=== PATIENT | female | born 1930 | race Caucasian/White ===

== ENCOUNTER 2017-05-25 17:04 | Emergency (ER) | payer OTHER ==
[~2017-05-25] VITALS: Ht 170.2 cm; Wt 67.6 kg
[2017-05-25 17:28] VITALS: TEMP 36.8; Ht 170.2 cm; Wt 67.6 kg
--- NOTE | 2017-05-25 20:05 | EMERGENCY ROOM VISIT NOTE ---
History Report prepared by Lay: Parker Carrillo Under the Supervision of: Dr. Torsten Early M.D. First contact with patient: 19:45 Chief Complaint: HEAD INJURY (MINOR) Stated Complaint: FELL - NOSE/HEAD INJURY History of Present Illness The patient is a 87 year old white woman with a past medical history of hypertension, heart arrhythmia, and a thyroid disorder who presents to the ED with a cc of a minor fall that occurred 5 hours ago. Positive mild facial trauma and intermittent left shoulder pain. Negative loss of consciousness, headache, chest pain, neck pain, or shortness of breath, numbness, weakness, tingling, or visual trouble. At this time, she was walking on the grass and fell forward onto her face. She has no past surgeries. She takes Coumadin for her heart arrhythmia and notes her levels are good. She does not take any Aspirin or Plavix. Source of History: patient Onset: 5 hours ago Position: other (global) Symptom Intensity: mild Quality: other (Fall) Timing: resolved Associated Symptoms: No LOC, No headache, No neck pain, No chest pain, No SOB, No abdominal pain, No back pain, No weakness, No numbness Note: She has some facial trauma and some left shoulder pain that could be from her arthritis. Review of Systems See HPI for pertinent positives and negatives. A total of ten systems were reviewed and were otherwise negative. Past Medical & Surgical Medical Problems: (1) Cardiac arrhythmia (2) HTN (hypertension) (3) Thyroid disorder Family History Omitted secondary to the patient's age. Social History Smoking Status: Never Smoker Smokeless Tobacco Use: No Alcohol Use: none Drug Use: none Marital Status: Housing Status: lives alone Occupation Status: retired Current/Historical Medications Scheduled Hydrochlorothiazide (Hctz), 25 MG PO DAILY Levothyroxine Sodium (Synthroid), 88 MCG PO DAILY Metoprolol Tartrate (Lopressor) (Lopressor), 25 MG PO DAILY Potassium Chloride (Micro-K Ext Rel), 10 MEQ PO MWF Warfarin Sodium (Coumadin), 2.5 MG PO [id number] Scheduled PRN Acetaminophen (Tylenol Arthritis Ext Rel), 650 MG PO Q8H PRN for Pain Mometasone Furoate (Elocon), 1 APPLN TOP DAILY PRN for Polyethylene Glycol-Propylene (Systane), 1 DROPS OP QID PRN for DRYNESS Allergies Coded Allergies: Naproxen (Verified Allergy, Intermediate, Hivesw, 05/25/17) Physical Exam Vital Signs Date Time Temp Pulse Resp B/P (MAP) Pulse Ox O2 Delivery O2 Flow Rate FiO2 05/25/17 22:01 70 16 107/76 98 05/25/17 19:47 80 20 159/91 99 Room Air 05/25/17 17:28 36.8 64 18 147/82 98 Room Air 05/25/17 17:28 18 98 Physical Exam GENERAL: Awake, alert, well-appearing, NAD HENT: Normocephalic, atraumatic. Mild abrasions over the nasion and nose. No deviated septum, no septal hematoma. EOMI. No hyphema. EYES: Normal conjunctiva. Sclera non-icteric. NECK: Supple. No nuchal rigidity. FROM. RESPIRATORY: CTAB, no rhonchi, wheezing, crackles CARDIAC: RRR, no MRG ABDOMEN: Soft, NTND, BS+ MSK: No reproducible chest wall, abdomen, back, or LE TTP, no LE edema. Mild reproducible left shoulder pain. NV intact distally. NEURO: GCS 15, CN 2-12 intact, moves all 4s on command, 5/5 strength B/L UEs LEs , no sensory deficit. SKIN: No rash or jaundice noted. Medical Decision & Procedures ER Provider Diagnostic Interpretation: Radiology results as stated below per my review and radiologist interpretation: LEFT SHOULDER MIN 2 VIEWS ROUTINE CLINICAL HISTORY: 87 years-old Female presenting with fall, on coumadin, facial abrasions. TECHNIQUE: Internal rotation, external rotation, and Grashey views of the left shoulder were obtained. COMPARISON: None. FINDINGS: Superior subluxation of the left humeral head with complete effacement of the acromiohumeral interval likely indicating complete rotator cuff tear. Prominent inferior osteophyte at the humeral head that articulates with the glenoid fossa. The left acromioclavicular joint is intact. No acute fracture. Visualized portion of the left hemithorax demonstrates atherosclerosis of the aortic arch. IMPRESSION: 1. No acute osseous injury of the left shoulder. 2. Complete rotator cuff tear with chronic superior subluxation of the left humeral head and associated degenerative change. Electronically signed by: Jericho Hollis M.D. 05/25/2017 9:19 PM Dictated Date/Time: 05/25/2017 9:17 PM FACIAL BONES-MXILLOFAC WITHOUT CLINICAL HISTORY: 87 years-old Female presenting with fall, on coumadin, facial abrasions. TECHNIQUE: Multidetector CT of the face was performed without the use of intravenous contrast. IV contrast: None. A dose lowering technique was used consistent with the principles of ALARA (as low as reasonably achievable). COMPARISON: None. CT DOSE (mGy.cm): The estimated cumulative dose is 523.75 mGycm. FINDINGS: Switchman topogram: Unremarkable. Paranasal sinuses and mastoid air cells clear. No acute osseous injury is evident. Orbits normal. Remaining soft tissues of the face do not demonstrate soft tissue hematoma or significant contusion. Upper cervical spine with degenerative change. IMPRESSION: No acute osseous injury of the face. Electronically signed by: Jericho Hollis M.D. 05/25/2017 9:07 PM Dictated Date/Time: 05/25/2017 9:04 PM HEAD WITHOUT CONTRAST (CT) CLINICAL HISTORY: 87 years-old Female presenting with fall, on coumadin, facial abrasions. TECHNIQUE: Multidetector CT imaging of the head was performed without the use of intravenous contrast. IV contrast: None. A dose lowering technique was used consistent with the principles of ALARA (as low as reasonably achievable). COMPARISON: None. CT DOSE (mGy.cm): The estimated cumulative dose is 638.56 mGycm. FINDINGS: Switchman topogram: Unremarkable. Ventricles and sulci normal in size. Brain parenchyma normal in appearance with preserved downs-white differentiation. No mass effect or midline shift. No hemorrhage or acute territorial infarct. No extra-axial fluid collection. Paranasal sinuses and mastoid air cells clear. Calvarium intact. IMPRESSION: 1. No acute intracranial pathology. Electronically signed by: Jericho Hollis M.D. 05/25/2017 9:08 PM Dictated Date/Time: 05/25/2017 9:07 PM CERVICAL SPINE W/O CLINICAL HISTORY: 87 years-old Female presenting with fall, on coumadin, facial abrasions. TECHNIQUE: Multidetector CT of the cervical spine was performed without the use of intravenous contrast. IV contrast: None. A dose lowering technique was used consistent with the principles of ALARA (as low as reasonably achievable). COMPARISON: None. CT DOSE (mGy.cm): The estimated cumulative dose is 368.06 mGycm. FINDINGS: Switchman topogram: Unremarkable. Normal cervical lordosis. Multilevel degenerative change. Varying degrees of osseous neural foraminal narrowing noted most pronounced on the right at C2-3 and bilaterally at C5-6. No acute fracture or subluxation. Degenerative changes of the atlantoaxial joint. Skull base intact. No prevertebral soft tissue swelling. Marked apparent enlargement of the right lobe of the thyroid with leftward deviation of the airway. Lung apices clear. IMPRESSION: No acute osseous injury of the cervical spine. Multilevel degenerative changes. Electronically signed by: Jericho Hollis M.D. 05/25/2017 9:12 PM Dictated Date/Time: 05/25/2017 9:08 PM Laboratory Results Test 05/25/17 20:28 Prothrombin Time 33.6 SECONDS (9.0-12.0) Prothromb Time International Ratio 3.0 (0.9-1.1) Laboratory results reviewed by [facility] Course 1944: The patient was evaluated in room B9. A complete history and physical exam was performed. 2142: I reevaluated the patient. Discussed return precautions. Discussed results and discharge instructions: She verbalized understanding and agreement. The patient is ready for discharge. Medical Decision The patient is a 87 year old white woman with a past medical history of hypertension, heart arrhythmia, and a thyroid disorder who presents to the ED with a cc of a minor fall that occurred 5 hours ago. Positive mild facial trauma and intermittent left shoulder pain. Negative loss of consciousness, headache, chest pain, neck pain, or shortness of breath, numbness, weakness, tingling, or visual trouble. Triage Nursing notes reviewed. The patient's presentation and history were concerning for fracture, ICH, sprain , strain, arthritis, and coagulopathy. Patient was very well-appearing with only mild abrasions to the face. Patient did not have any intraoral injuries. Patient had a CT head C-spine and CT face. The patient's CTs were negative. Patient also did have a left shoulder film which showed subluxation and rotator cuff Tear. Patient states that she has had chronic pain here and this is likely chronic in nature although it may have been exacerbated. Patient is neurovascularly intact distally. Patient's INR was 3. The patient does live with her daughter, I explained the patient should return if she has any worsening headache, numbness, tingling, weakness, or difficulty with speech. At the time of discharge patient was neurovascularly intact and had no numbness tingling or weakness. The patient agreed with plan of care was discharged to home in the care of her daughter. Head Trauma GCS Score: 15 Medication Reconcilliation Current Medication List: was personally reviewed by me Blood Pressure Screening Patient's blood pressure: Normal blood pressure Impression Primary Impression: Fall from ground level Additional Impressions: Facial abrasion Rotator cuff tear Shoulder subluxation, left Scribe Attestation The scribe's documentation has been prepared under my direction and personally reviewed by me in its entirety. I confirm that the note above accurately reflects all work, treatment, procedures, and medical decision making performed by me. Departure Information Dispostion Home / Self-Care Referrals Erik Noble M.D. (PCP) Forms HOME CARE DOCUMENTATION FORM, IMPORTANT VISIT INFORMATION Patient Instructions Coumadin, ED Mechanical Fall, ED Prevention Fall, [facility] Additional Instructions Please return to the emergency department if you have worsening or recurrent symptoms not amenable to at-home treatment. Please call for a follow-up appointment with her primary care physician. Please take your medications as prescribed. If you have other concerns and/or complaints please feel free to also call your primary care physician's office or return the ED for further evaluation, management, and treatment. If you develop any neurologic symptoms including numbness weakness tingling or difficulty with speech please return to the emergency department for evaluation. Problem Qualifiers Additional Impressions: Facial abrasion Encounter type: initial encounter Qualified Codes: S00.81XA - Abrasion of other part of head, initial encounter Rotator cuff tear Rotator cuff tear extent: complete Laterality: left Qualified Codes: M75.122 - Complete rotator cuff tear or rupture of left shoulder, not specified as traumatic Shoulder subluxation, left Encounter type: subsequent encounter Qualified Codes: S43.002D - Unspecified subluxation of left shoulder joint, subsequent encounter
[2017-05-25] MEDS ORDERED: HYDR25TA4 PO (20:41)
[2017-05-25] MEDS ORDERED: WARF5TAB90 PO (20:41)
[2017-05-25] MEDS ORDERED: POLYSOL4 OP (20:41)
[2017-05-25] MEDS ORDERED: ACET1TAB84 PO (20:41)
[2017-05-25] MEDS ORDERED: MOME0.1O TOP (20:41)
[2017-05-25] MEDS ORDERED: POTA10CA28 PO (20:41)
[2017-05-25] MEDS ORDERED: METO50TA16 PO (20:41)
[2017-05-25] MEDS ORDERED: LEVO88TA PO (20:41)
[2017-05-25 20:50] LABS: PROTHROMBIN TIME (PATIENT) 33.6 SECONDS (9.0-12.0)
--- NOTE | 2017-05-25 21:08 | DIAGNOSTIC IMAGING REPORT ---
FACIAL BONES-MXILLOFAC WITHOUT CLINICAL HISTORY: 87 years-old Female presenting with fall, on coumadin, facial abrasions. TECHNIQUE: Multidetector CT of the face was performed without the use of intravenous contrast. IV contrast: None. A dose lowering technique was used consistent with the principles of ALARA (as low as reasonably achievable). COMPARISON: None. CT DOSE (mGy.cm): The estimated cumulative dose is 523.75 mGycm. FINDINGS: Haircutter topogram: Unremarkable. Paranasal sinuses and mastoid air cells clear. No acute osseous injury is evident. Orbits normal. Remaining soft tissues of the face do not demonstrate soft tissue hematoma or significant contusion. Upper cervical spine with degenerative change. IMPRESSION: No acute osseous injury of the face. Electronically signed by: Jericho Hollis M.D. 05/25/2017 9:07 PM Dictated Date/Time: 05/25/2017 9:04 PM
--- NOTE | 2017-05-25 21:10 | DIAGNOSTIC IMAGING REPORT ---
HEAD WITHOUT CONTRAST (CT) CLINICAL HISTORY: 87 years-old Female presenting with fall, on coumadin, facial abrasions. TECHNIQUE: Multidetector CT imaging of the head was performed without the use of intravenous contrast. IV contrast: None. A dose lowering technique was used consistent with the principles of ALARA (as low as reasonably achievable). COMPARISON: None. CT DOSE (mGy.cm): The estimated cumulative dose is 638.56 mGycm. FINDINGS: Mate First topogram: Unremarkable. Ventricles and sulci normal in size. Brain parenchyma normal in appearance with preserved downs-white differentiation. No mass effect or midline shift. No hemorrhage or acute territorial infarct. No extra-axial fluid collection. Paranasal sinuses and mastoid air cells clear. Calvarium intact. IMPRESSION: 1. No acute intracranial pathology. Electronically signed by: Jericho Hollis M.D. 05/25/2017 9:08 PM Dictated Date/Time: 05/25/2017 9:07 PM
--- NOTE | 2017-05-25 21:14 | DIAGNOSTIC IMAGING REPORT ---
CERVICAL SPINE W/O CLINICAL HISTORY: 87 years-old Female presenting with fall, on coumadin, facial abrasions. TECHNIQUE: Multidetector CT of the cervical spine was performed without the use of intravenous contrast. IV contrast: None. A dose lowering technique was used consistent with the principles of ALARA (as low as reasonably achievable). COMPARISON: None. CT DOSE (mGy.cm): The estimated cumulative dose is 368.06 mGycm. FINDINGS: Sales Engineer Account Manager topogram: Unremarkable. Normal cervical lordosis. Multilevel degenerative change. Varying degrees of osseous neural foraminal narrowing noted most pronounced on the right at C2-3 and bilaterally at C5-6. No acute fracture or subluxation. Degenerative changes of the atlantoaxial joint. Skull base intact. No prevertebral soft tissue swelling. Marked apparent enlargement of the right lobe of the thyroid with leftward deviation of the airway. Lung apices clear. IMPRESSION: No acute osseous injury of the cervical spine. Multilevel degenerative changes. Electronically signed by: Jericho Hollis M.D. 05/25/2017 9:12 PM Dictated Date/Time: 05/25/2017 9:08 PM
--- NOTE | 2017-05-25 21:20 | DIAGNOSTIC IMAGING REPORT ---
LEFT SHOULDER MIN 2 VIEWS ROUTINE CLINICAL HISTORY: 87 years-old Female presenting with fall, on coumadin, facial abrasions. TECHNIQUE: Internal rotation, external rotation, and Grashey views of the left shoulder were obtained. COMPARISON: None. FINDINGS: Superior subluxation of the left humeral head with complete effacement of the acromiohumeral interval likely indicating complete rotator cuff tear. Prominent inferior osteophyte at the humeral head that articulates with the glenoid fossa. The left acromioclavicular joint is intact. No acute fracture. Visualized portion of the left hemithorax demonstrates atherosclerosis of the aortic arch. IMPRESSION: 1. No acute osseous injury of the left shoulder. 2. Complete rotator cuff tear with chronic superior subluxation of the left humeral head and associated degenerative change. Electronically signed by: Jericho Hollis M.D. 05/25/2017 9:19 PM Dictated Date/Time: 05/25/2017 9:17 PM
[2017-05-25 22:01] VITALS: BP 107/76; PULSE 70; O2SAT 98
== END 2017-05-25 22:02 | disposition home or self-care (01) ==
LOC: C.EDB 17:10
DX: S00.81XA Abrasion of other part of head, initial encounter (principal); S43.082A Other subluxation of left shoulder joint, initial encounter; W19.XXXA Unspecified fall, initial encounter; M75.102 Unspecified rotator cuff tear or rupture of left shoulder, not specified as traumatic; I10 Essential (primary) hypertension; E07.9 Disorder of thyroid, unspecified; Z79.01 Long term (current) use of anticoagulants; Z79.899 Other long term (current) drug therapy; Z88.8 Allergy status to other drugs, medicaments and biological substances